=== PATIENT | female | born 1945 | race Caucasian/White ===

== ENCOUNTER 2019-12-26 05:45 | Inpatient (IN) | payer BC ==
[~2019-12-26] VITALS: Ht 172.7 cm; Wt 60.3 kg
[2019-12-26] VITALS (13 sets, daily range): BP systolic 108–143; BP diastolic 60–86
[~2019-12-26 05:45] MED LIST: NORCO 10-325 T1 EACH ORAL; TRAMADOL HCL50 MG ORAL
[2019-12-26] MEDS ORDERED: oxyCONTIN 10mg tab ORAL ONE (06:00)
[2019-12-26] MEDS ORDERED: celeBREX 200mg Cap **SURGERY PATIENTS ONLY ORAL ONE (06:00)
[2019-12-26] MEDS ORDERED: ceFAZolin 1gm IVPB IVPB ONE ×2 (06:00)
[2019-12-26] MEDS ORDERED: Lidocaine 1% MPF 10mg/ml 5ml ONE ×2 (06:33→06:41)
[2019-12-26] MEDS ORDERED: Ropivacaine 5mg/ml Vial 20ml INJ ONE (06:35)
[2019-12-26] MEDS ORDERED: fentaNYL 100 mcg/2 mL IV ONE (06:40)
--- NOTE | 2019-12-26 07:05 | Pre-Procedure Note/Attestation ---
Pre-Procedure Note/Attestation Complete Prior to Procedure Planned Procedure: right Procedure Narrative: right total knee arthroplasty Indications for Procedure Pre-Operative Diagnosis: right knee arthritis Attestation I attest that I discussed the nature of the procedure; its benefits; risks and complications; and alternatives (and the risks and benefits of such alternatives), prior to the procedure, with the patient (or the patient's legal territory account representative). I attest that, if there was a reasonable possibility of needing a blood transfusion, the patient (or the patient's legal territory account representative) was given the [facility] standardized written summary, pursuant to the Anjel Janie Blood Safety Act ([place] Health and Safety Code # 1645, as amended). I attest that I re-evaluated the patient just prior to the surgery and that there has been no change in the patient's H&P, except as documented below: NONE Rolly Casiano MD Dec 26, 2019 07:05
[2019-12-26] MEDS ORDERED: Bacitracin 50000 Units Vial ONE (07:23)
[2019-12-26] MEDS ORDERED: NeoSporin Gu Irrig 1ml Amp IRRIG ONE ×2 (07:23→07:42)
[2019-12-26] MEDS ORDERED: Tranexamic Acid 1,000 MG in NS 55 ML IVPB ONE (07:30)
--- NOTE | 2019-12-26 07:32 | Anethesia Preoperative Eval ---
Anesthesia Pre-op PMH/ROS General Date of Evaluation: Dec 26, 2019 Time of Evaluation: 07:26 Anesthesiologist: Leo ASA Score: ASA 2 Mallampati Score Class I : Soft palate, uvula, fauces, pillars visible Class II: Soft palate, uvula, fauces visible Class III: Soft palate, base of uvula visible Class IV: Only hard plate visible Mallampati Classification: Class II Surgeon: Oh Diagnosis: R knee djd Surgical Procedure: R knee arthroplasty Anesthesia History: none Family History: no anesthesia problems Allergies: Coded Allergies: No Known Allergies (Unverified , 12/26/19) Medications: see eMAR Patient NPO?: Yes Past Medical History Cardiovascular: Denies: HTN, CAD, [place], valve dz, arrhythmia, other Pulmonary: Denies: asthma, COPD, NACHO, other Gastrointestinal/Genitourinary: Reports: GERD - mild; Denies: CRI, ESRD, other Neurologic/Psychiatric: Denies: dementia, CVA, depression/anxiety, TIA, other Endocrine: Denies: DM, hypothyroidism, steroids, other HEENT: Denies: cataract (L), cataract (R), glaucoma, [place] (L), [place] (R), other Hematology/Immune: Denies: anemia, DVT, bleeding disorder, other Musculoskeletal/Integumentary: Reports: OA; Denies: RA, DJD, DDD, edema, other PMH Narrative: as above PSxH Narrative: R ACL repair, ovarian cystectomy, podiatry Anesthesia Pre-op Phys. Exam Physician Exam Last Vital Signs Date Time Temp Pulse Resp B/P (MAP) Pulse Ox O2 Delivery O2 Flow Rate FiO2 12/26/19 06:49 Room Air 12/26/19 06:28 97.1 74 18 133/76 (95) 98 Constitutional: NAD Neurologic: CN 2-12 intact Cardiovascular: RRR, no M/R/G Respiratory: CTA Gastrointestinal: S/NT/ND Airway Exam Mallampati Score: Class II MO: full Neck: stiff ROM: limited Teeth: missing Dentures: no upper, no lower Anesthesia Pre-op A/P Labs see chart Studies Pre-op Studies: EKG - NSR, CXR - WNL Risk Assessment & Plan Assessment: ASA 2 Plan: GA with LMA, saphenous nerve block for postop pain control Status Change Before Surgery: No Pre-Antibiotics Drug: ancef 1gr Given Within 1 Hr of Incision: Yes Time Given: 08:45 Greg Bailey MD Dec 26, 2019 07:31
[2019-12-26] MEDS ORDERED: NS Irrig 1000ml IRRIG ONE ×4 (08:22→10:40)
[2019-12-26] MEDS ORDERED: Ketorolac 30mg Inj IV PRN ×2 (08:30→12:45)
[2019-12-26] MEDS ORDERED: LR 1000ml 1,000 ML IVLG SCH (08:30)
[2019-12-26] MEDS ORDERED: Acetaminophen (Non formulary) 100 ML IV ONE (08:30)
[2019-12-26] MEDS ORDERED: Sterile Water Irrig 2000ml IRRIG ONE (09:16)
[2019-12-26] MEDS ORDERED: LR 1000ml ONE (09:16)
[2019-12-26] MEDS ORDERED: NS Irrig 1000ml ONE (09:16)
[2019-12-26] MEDS: Bacitracin 50000 Units Vial ONE ×2 (09:45→10:40)
[2019-12-26] MEDS ORDERED: Morphine Sulfate 10mg/ml Inj ONE (09:58)
[2019-12-26] MEDS ORDERED: Sodium Chloride 10ml vial INJ ONE ×2 (09:59→10:05)
[2019-12-26] MEDS ORDERED: ePHEDrine 50mg/ml Inj ONE (10:05)
[2019-12-26] MEDS ORDERED: HYDROmorphone 1mg/ml Carpuject SUBQ PRN (10:15)
[2019-12-26] MEDS ORDERED: Milk of Magnesia 30ml Ud ORAL PRN (10:15)
--- NOTE | 2019-12-26 11:51 | Brief Operative Note ---
Immediate Post Operative Note Operative Note Chief Complaint: rt knee pain Pre-op Diagnosis: right knee arthritis Procedure: rt total knee arthroplasty Post-op Diagnosis: same as pre-op Findings: consistent w/pre-op dx studies Surgeon: md shahram Coil Finisher: pascual martinez Anesthesiologist: md colten Anesthesia: general Specimen: yes Complications: none Condition: stable Fluids: ns Estimated Blood Loss: minimal Drains: none Implant(s) used?: Yes - Rolly Mora MD Dec 26, 2019 11:51
--- NOTE | 2019-12-26 12:07 | Immediate Post-Op Evaluation ---
Immediate Post-Op Evalulation Immediate Post-Op Evalulation Procedure: R TKA Date of Evaluation: Dec 26, 2019 Time of Evaluation: 12:06 IV Fluids: 1300 Blood Products: none Estimated Blood Loss: 150 Urinary Output: 450 Blood Pressure Systolic: 142 Blood Pressure Diastolic: 76 Pulse Rate: 82 Respiratory Rate: 20 O2 Sat by Pulse Oximetry: 99 Temperature (Fahrenheit): 97.8 Pain Score (1-10): 2 Nausea: No Vomiting: No Complications none Patient Status: reacts, patent, extubated, none Greg Bailey MD Dec 26, 2019 12:07
[2019-12-26] MEDS ORDERED: Hydromorphone 0.5mg/0.5ml inj ONE ×2 (12:13→12:26)
[2019-12-26] MEDS: Hydromorphone 0.5mg/0.5ml inj IVP PRN ×2 (12:16→12:28)
[2019-12-26] MEDS ORDERED: Hydromorphone 0.5mg/0.5ml inj IVP PRN (12:30)
[2019-12-26] MEDS ORDERED: DiphenhydrAMINE 50mg/ml Inj IVP SCH ×2 (12:30→12:45)
--- NOTE | 2019-12-26 15:29 | Diagnostic Imaging Report ---
Indications: Postoperative Technique: Two views of the right knee Comparison: None Findings: Two postoperative views of the great knee demonstrate total knee arthroplasty, good anatomic alignment of the prosthesis. . There is postsurgical soft tissue air. Impression: Postoperative right knee, no unusual features.
[2019-12-26] MEDS: ceFAZolin sod 1 GM in D5W 55 ML IV SCH (15:32)
[2019-12-26] MEDS: D5 1/2NS w/KCl 20mEq 1,000 ML IV SCH (15:32)
[2019-12-26] MEDS: Docusate 100mg cap ORAL SCH (17:48)
--- NOTE | 2019-12-26 18:30 | Operative Note - Dictated ---
DATE OF OPERATION: 12/26/2019 PREOPERATIVE DIAGNOSES: 1. Right knee end-stage arthritis. 2. Right knee retained [employer] staple. POSTOPERATIVE DIAGNOSES: 1. Right knee end-stage arthritis. 2. Right knee retained [employer] staple. PROCEDURE: 1. Right total knee arthroplasty using the [place] Triathlon System, size 5 femur, size 6 tibial baseplate, 33 mm ultra cross-linked patellar component, and 9 mm ultra cross-linked polyethylene tibial insert. 2. Removal of [employer]ald [employer]hew staple hardware under anteromedial crest of the tibia that was impeding the placement of the implant. SURGEON: Rolly Casiano MD SHEET METAL CONTRACTOR: Connie Atkinson PA-C Senior Account Director was present during the actual operative portion of the case and was important and essential part of the operation. During the operation, the multimedia assistant held and operated the arthroscopic camera for visualization, assisted by manipulating the arm to help with visualization, and helped with essential parts of the repair process as necessary such as operating surgical instruments under surgeon supervision, suture management, and wound closures. ANESTHESIOLOGIST: Greg Bailey MD ANESTHESIA: Short-acting spinal combined with adductor block. ESTIMATED BLOOD LOSS: Less than 100 mL. TOURNIQUET TIME: 75 minutes. COMPLICATIONS: None. BRIEF HISTORY: The patient is a very pleasant 74-year-old female, who has had ongoing right knee pain with severe arthritis of all three compartments. After full discussion of risks and benefits of the surgery and after she failed nonoperative treatment, she opted for surgical treatment as described above. Risk of infection, bleeding, neurovascular complication, possibility of continued pain, possibility of stiffness, possibility of fracture, possibility of DVT, PE, stiffness, even postop pain, loss of motion, and need for revision surgery as well as possible resection arthroplasty in case of infection was discussed with the patient. The patient understood and agreed. OPERATIVE PROCEDURE: The patient was brought to the operating room table and was placed supine. All pressure points were well padded. Anesthesia was induced by the anesthesiologist and block was performed. Preoperative antibiotics were given and tranexamic acid was given preoperatively. Time-out was performed and right leg was prepped and draped in a sterile fashion and exsanguinated. Tourniquet was inflated to 275 mmHg. A standard anterior approach to the knee was undertaken. Medial parapatellar arthrotomy was performed. Release of the fibers of the MCL was performed. The staple on the tibial side appeared to be impeding the placement of the implant. Therefore, the tibial staple was identified on the medial face and using a combination of osteotome and rongeurs, the staple was removed without any complications. The hardware was removed in this fashion. At this point, care was then directed to total knee replacement. The patella was everted. The knee was flexed. The ACL and PCL were resected. Intramedullary access was obtained into the femur. The intramedullary guide passed through the femoral staple and therefore, the femoral staple did not need to be taken out. Once this was completed, the distal femoral cut was performed in 5 degrees of valgus. Sizing was performed and size 5 appeared to be the right size. Anterior, posterior, and chamfer cuts were performed. There was very slight notching of the anterior femur, although this did not expose the bone to fracture. There was no loss of structural integrity of the bone. At this point, the trial 5 femur was applied. There was excellent fit. The peg holes were drilled and care was given to the tibia. Extramedullary tibial guide was placed in. Anterior crest of the tibia was marked as the guide for anatomical axis. The extramedullary guide was applied and 2 mm was taken off the most-involved side, which was the lateral side. Medial, lateral, and posterior retractors were placed in and the tibial cut was performed without any complication. Flexion and extension gap was checked and appeared to be excellent. There were some posterior osteophytes off the condyle, which were removed. The menisci were all removed. At this point, the trial femoral component, tibial component, 9 mm poly were placed and there was excellent range of motion, full extension, full flexion, and excellent stability at 0, 30 degrees, 45 degrees, and 90 degrees. At this point, the tibial plate, which was a size 6 tibial plate was placed in slight external rotation and it was drilled and punched without complications. At this point, care was given to the patella component. The patella was everted. It measured 25 mm. A freehand patellar cut was performed and the final patella thickness was 14 mm. At this point, size 32 mm patella appeared to be the right size and the peg holes were drilled. The patella trial was applied and femoral and tibial trials were applied with 9 mm poly insert. The knee was placed through range of motion. There was excellent patellofemoral tracking and excellent range of motion and stability as described previously. At this point, all trial components were removed. The knee was thoroughly irrigated using Simpulse irrigation. The cement was mixed and tibial component, femoral component, and patella components were all cemented under compression and all excess cement was removed. At this point, trialing was performed with 9 mm poly and appeared to be the right size. The knee was irrigated thoroughly and dried, and the actual 9 mm poly was then locked in without any complication. Intraoperative x-rays were obtained on AP and lateral, and the femoral staple was intact and was away from the field of the femur. The components were in excellent position. Again, slight notching of anterior femur could be seen on the x-ray, which was felt to be clinically consequential. All wounds were thoroughly irrigated using copious amount of fluid. The tourniquet was deflated and there was minimal bleeding, which was coagulated. The extensor mechanism was closed using #1 Vicryl suture. Subcutaneous tissue was closed using 2-0 Vicryl suture. Skin was closed using 3-0 Monocryl suture. Dermabond was applied and sterile dressing was applied. The patient tolerated the procedure well without any complication and was taken recovery room in stable condition. All lap counts and instrument counts were correct. Rolly Casiano M.D. DR: PATRICIA JOB#: [id number] CC:
[2019-12-26] MEDS ORDERED: oxyCONTIN 10mg tab ORAL SCH (21:00)
[2019-12-26] MEDS: HYDROcodone/Acetamin 7.5/325 tab ORAL PRN (22:28)
[2019-12-27] VITALS: BP 107/62
--- NOTE | 2019-12-27 00:45 | Consultation ---
DATE OF CONSULTATION: 12/26/2019 INTERNAL MEDICINE CONSULTATION CONSULTING PHYSICIAN: Jaskaran Kumar MD HISTORY OF PRESENT ILLNESS: Patient is a pleasant 74-year-old female who was admitted and underwent right knee arthroplasty by Dr. Casiano today for arthritis. Patient is seen postoperatively. She denies any chest pain or shortness of breath. Denies any abdominal pain. No urinary symptoms. No headaches. No sore throat. No fevers or chills. PAST MEDICAL HISTORY: Includes a history of gastroesophageal reflux, history of previous right ACL repair, history of ovarian cystectomy, history of podiatry, history of ovarian cystectomy, history of right knee degenerative joint disease. Denies any history of CAD, hypertension, or [place]. ALLERGIES: None known. MEDICATIONS: See her reconciled medication list. SOCIAL HISTORY: She does not smoke, does not drink any alcohol or use any drugs. PHYSICAL EXAMINATION: GENERAL: She is well developed, well nourished, currently in no apparent distress. VITAL SIGNS: Blood pressure 135/67, respirations of 17, pulse 84, temperature 98.9. HEENT: Head is normocephalic, atraumatic. Pupils are equally reactive to light. Extraocular muscles are intact. Eyes are anicteric. NECK: Supple. No JVP. No bruits. LUNGS: Clear. HEART: Regular rate and rhythm. ABDOMEN: Soft. Positive bowel sounds. Nondistended, nontender. EXTREMITIES: No clubbing, cyanosis, or edema. Right knee is wrapped. NEUROVASCULAR: Intact. PSYCHIATRIC: Normal mood and affect. NEUROLOGIC: Nonfocal. ASSESSMENT AND PLAN: Patient is a 74-year-old female, underwent right knee arthroplasty today. Postoperatively, she appears to be doing fine. She will need postop care, pain medications. She needs a bowel regimen. Patient should be on DVT and ulcer prophylaxis. Thank you for allowing me to participate in the care of patient. Jaskaran Kumar M.D. DR: DEANDRE JOB#: [id number] CC:
[2019-12-27] MEDS: ceFAZolin sod 1 GM in D5W 55 ML IV SCH (01:26)
[2019-12-27] MEDS: D5 1/2NS w/KCl 20mEq 1,000 ML IV SCH ×2 (04:00→17:40)
[2019-12-27] MEDS: HYDROcodone/Acetamin 7.5/325 tab ORAL PRN ×2 (04:04→12:38)
[2019-12-27 06:02] LABS: BASOPHILS % (AUTO) 0.8 % (0.0-2.0); EOSINOPHILS % (AUTO) 3.7 % (0.0-3.0); HEMATOCRIT 29.2 % (37.0-47.0); HEMOGLOBIN 9.1 G/DL (12.0-16.0); LYMPHOCYTES % (AUTO) 13.9 % (20.0-45.0); MEAN CORPUSCULAR VOLUME 96 FL (80-99); NEUTROPHILS % (AUTO) 69.6 % (45.0-75.0); PLATELET COUNT 210 K/UL (150-450); RED BLOOD COUNT 3.04 M/UL (4.20-5.40); WHITE BLOOD COUNT 6.7 K/UL (4.8-10.8)
--- NOTE | 2019-12-27 07:55 | 48 Hour Post Anesthesia Eval ---
Post Anesthesia Evaluation Procedure: R TKA Date of Evaluation: Dec 27, 2019 Time of Evaluation: 07:53 Blood Pressure Systolic: 108 0: 76 Pulse Rate: 76 Respiratory Rate: 22 Temperature (Fahrenheit): 97.6 O2 Sat by Pulse Oximetry: 98 Airway: patent Nausea: No Vomiting: No Pain Intensity: 3 Hydration Status: adequate Cardiopulmonary Status: stable Mental Status/LOC: patient returned to baseline Follow-up Care/Observations: n/a Post-Anesthesia Complications: none Follow-up care needed: N/A Greg Bailey MD Dec 27, 2019 07:55
[2019-12-27 08:00] VITALS: BP 103/66
--- NOTE | 2019-12-27 08:08 | Orthopedic Progress Note ---
Orthopedic - Progress Note Subjective Symptoms: c/o post-op knee pain, other - quite somnolent yesterday and therefore held night dose oxy. c/o pain overnight. would like to be on PO meds and take less diluadid. Objective Laboratory Tests Test 12/27/19 05:29 White Blood Count 6.7 K/UL (4.8-10.8) Red Blood Count 3.04 M/UL (4.20-5.40) L Hemoglobin 9.1 G/DL (12.0-16.0) L Hematocrit 29.2 % (37.0-47.0) L Mean Corpuscular Volume 96 FL (80-99) Mean Corpuscular Hemoglobin 29.9 PG (27.0-31.0) Mean Corpuscular Hemoglobin Concent 31.1 G/DL (32.0-36.0) L Red Cell Distribution Width 14.0 % (11.6-14.8) Platelet Count 210 K/UL (150-450) Mean Platelet Volume 6.0 FL (6.5-10.1) L Neutrophils (%) (Auto) 69.6 % (45.0-75.0) Lymphocytes (%) (Auto) 13.9 % (20.0-45.0) L Monocytes (%) (Auto) 12.0 % (1.0-10.0) H Eosinophils (%) (Auto) 3.7 % (0.0-3.0) H Basophils (%) (Auto) 0.8 % (0.0-2.0) Last 24 Hour Vital Signs Date Time Temp Pulse Resp B/P (MAP) Pulse Ox O2 Delivery O2 Flow Rate FiO2 12/27/19 07:55 76 22 98 12/27/19 00:00 98.1 91 18 107/62 (77) 97 12/26/19 21:00 Nasal Cannula 1.0 12/26/19 20:00 98.2 86 17 108/60 (76) 97 12/26/19 15:30 97.9 87 18 125/67 (86) 100 12/26/19 14:25 98.8 86 18 131/68 (89) 100 12/26/19 13:55 98.8 65 18 134/68 (90) 100 12/26/19 13:25 98.9 84 17 135/67 (89) 100 12/26/19 13:15 98.0 83 20 143/80 99 Nasal Cannula 3 12/26/19 13:01 98.0 81 20 135/79 99 Nasal Cannula 3 12/26/19 12:56 99.0 12/26/19 12:55 99.0 12/26/19 12:47 87 20 132/76 99 Simple Mask 5 12/26/19 12:38 86 20 131/79 99 Simple Mask 5 12/26/19 12:30 91 20 131/75 99 Simple Mask 5 12/26/19 12:16 86 20 141/86 99 Simple Mask 5 12/26/19 12:07 82 20 99 12/26/19 11:59 99.1 86 20 141/86 99 Simple Mask 5 Intake and Output 12/26/19 12/27/19 19:00 07:00 Intake Total 1500 ml 720 ml Output Total 600 ml 1600 ml Balance 900 ml -880 ml Intake Oral 200 ml 720 ml IV Total 1300 ml Output Urine Total 450 ml 1600 ml Estimated Blood Loss 150 ml # Voids 6 Laboratory Tests Test 12/27/19 05:29 White Blood Count 6.7 K/UL (4.8-10.8) Red Blood Count 3.04 M/UL (4.20-5.40) L Hemoglobin 9.1 G/DL (12.0-16.0) L Hematocrit 29.2 % (37.0-47.0) L Mean Corpuscular Volume 96 FL (80-99) Mean Corpuscular Hemoglobin 29.9 PG (27.0-31.0) Mean Corpuscular Hemoglobin Concent 31.1 G/DL (32.0-36.0) L Red Cell Distribution Width 14.0 % (11.6-14.8) Platelet Count 210 K/UL (150-450) Mean Platelet Volume 6.0 FL (6.5-10.1) L Neutrophils (%) (Auto) 69.6 % (45.0-75.0) Lymphocytes (%) (Auto) 13.9 % (20.0-45.0) L Monocytes (%) (Auto) 12.0 % (1.0-10.0) H Eosinophils (%) (Auto) 3.7 % (0.0-3.0) H Basophils (%) (Auto) 0.8 % (0.0-2.0) Wound: clean, dry, intact Drains: none Neuro Status: normal Vascular Status: normal Additional Comments xray excellent Assessment Post-op Diagnosis POD 1 Procedure Performed Rt TKA Plan Plan: PT, pain management - will add oxy 10mg BID back on. , discharge plan - plan for home with services and DME possibly tomorrow Connie Atkinson Dec 27, 2019 08:08
[2019-12-27] MEDS: oxyCONTIN 10mg tab ORAL SCH ×2 (08:37→20:47)
[2019-12-27] MEDS: celeBREX 200mg Cap **SURGERY PATIENTS ONLY ORAL SCH (08:37)
[2019-12-27] MEDS: Docusate 100mg cap ORAL SCH ×3 (08:37→17:48)
--- NOTE | 2019-12-27 08:49 | General Progress Note ---
Subjective Allergies: Coded Allergies: No Known Allergies (Unverified , 12/26/19) Subjective feels ok no chest painor sob Objective Last 24 Hour Vital Signs Date Time Temp Pulse Resp B/P (MAP) Pulse Ox O2 Delivery O2 Flow Rate FiO2 12/27/19 08:00 98.9 96 18 103/66 (78) 97 12/27/19 07:55 76 22 98 12/27/19 00:00 98.1 91 18 107/62 (77) 97 12/26/19 21:00 Nasal Cannula 1.0 12/26/19 20:00 98.2 86 17 108/60 (76) 97 12/26/19 15:30 97.9 87 18 125/67 (86) 100 12/26/19 14:25 98.8 86 18 131/68 (89) 100 12/26/19 13:55 98.8 65 18 134/68 (90) 100 12/26/19 13:25 98.9 84 17 135/67 (89) 100 12/26/19 13:15 98.0 83 20 143/80 99 Nasal Cannula 3 12/26/19 13:01 98.0 81 20 135/79 99 Nasal Cannula 3 12/26/19 12:56 99.0 12/26/19 12:55 99.0 12/26/19 12:47 87 20 132/76 99 Simple Mask 5 12/26/19 12:38 86 20 131/79 99 Simple Mask 5 12/26/19 12:30 91 20 131/75 99 Simple Mask 5 12/26/19 12:16 86 20 141/86 99 Simple Mask 5 12/26/19 12:07 82 20 99 12/26/19 11:59 99.1 86 20 141/86 99 Simple Mask 5 Intake and Output 12/26/19 12/27/19 19:00 07:00 Intake Total 1500 ml 720 ml Output Total 600 ml 1600 ml Balance 900 ml -880 ml Intake Oral 200 ml 720 ml IV Total 1300 ml Output Urine Total 450 ml 1600 ml Estimated Blood Loss 150 ml # Voids 6 Laboratory Tests 12/27/19 05:29: White Blood Count 6.7, Red Blood Count 3.04L, Hemoglobin 9.1L, Hematocrit 29.2L, Mean Corpuscular Volume 96, Mean Corpuscular Hemoglobin 29.9, Mean Corpuscular Hemoglobin Concent 31.1L, Red Cell Distribution Width 14.0, Platelet Count 210, Mean Platelet Volume 6.0L, Neutrophils (%) (Auto) 69.6, Lymphocytes (%) (Auto) 13.9L, Monocytes (%) (Auto) 12.0H, Eosinophils (%) (Auto) 3.7H, Basophils (%) (Auto) 0.8 Height (Feet): 5 Height (Inches): 8.00 Weight (Pounds): 133 General Appearance: WD/WN, no apparent distress Neck: supple Cardiovascular: normal rate Respiratory/Chest: lungs clear Abdomen: soft Edema: no edema noted Arm (L), no edema noted Arm (R), no edema noted Leg (L), no edema noted Leg (R), no edema noted Pedal (L), no edema noted Pedal (R), no edema noted Generalized Assessment/Plan Assessment/Plan: sp knee surgery osteoarthritis post op care pt eval pain control dvt and ulcer prophyloaxis Jaskaran Kumar MD Dec 27, 2019 08:49
[2019-12-27 10:10] LABS: BASOPHILS % (AUTO) 0.9 % (0.0-2.0); EOSINOPHILS % (AUTO) 3.2 % (0.0-3.0); HEMATOCRIT 30.6 % (37.0-47.0); HEMOGLOBIN 9.7 G/DL (12.0-16.0); LYMPHOCYTES % (AUTO) 11.6 % (20.0-45.0); MEAN CORPUSCULAR VOLUME 95 FL (80-99); MONOCYTES % (AUTO) 12.9 % (1.0-10.0); NEUTROPHILS % (AUTO) 71.5 % (45.0-75.0); PLATELET COUNT 227 K/UL (150-450); RED CELL DISTRIBUTION WIDTH 13.6 % (11.6-14.8); WHITE BLOOD COUNT 8.8 K/UL (4.8-10.8)
[2019-12-27 10:40] LABS: ALANINE AMINOTRANSFERASE 19 U/L (12-78); ALBUMIN 3.2 G/DL (3.4-5.0); ALBUMIN/GLOBULIN RATIO 1.1 (1.0-2.7); ALKALINE PHOSPHATASE 67 U/L (46-116); ANION GAP 9 mmol/L (5-15); ASPARTATE AMINO TRANSFERASE 22 U/L (15-37); BILIRUBIN,TOTAL 1.5 MG/DL (0.2-1.0); BLOOD UREA NITROGEN 11 mg/dL (7-18); CALCIUM 8.1 MG/DL (8.5-10.1); CARBON DIOXIDE 24 MMOL/L (21-32); CHLORIDE 104 MMOL/L (98-107); CREATININE 0.9 MG/DL (0.55-1.30); POTASSIUM 4.6 MMOL/L (3.5-5.1); SODIUM 137 MMOL/L (136-145)
[2019-12-27 10:41] LABS: BILIRUBIN,DIRECT 0.3 MG/DL (0.0-0.3)
[2019-12-27 12:00] VITALS: BP 103/82
[2019-12-27] MEDS ORDERED: Tubing IV Secondary IV ONE (15:27)
[2019-12-27 16:00] VITALS: BP 100/60
[2019-12-27 20:00] VITALS: BP 115/61
[2019-12-28] MEDS: D5 1/2NS w/KCl 20mEq 1,000 ML IV SCH (00:39)
[2019-12-28 04:00] VITALS: BP 110/64
[2019-12-28] MEDS: HYDROcodone/Acetamin 7.5/325 tab ORAL PRN ×3 (05:32→16:02)
[2019-12-28 07:20] LABS: BASOPHILS % (AUTO) 0.5 % (0.0-2.0); EOSINOPHILS % (AUTO) 4.1 % (0.0-3.0); HEMOGLOBIN 8.2 G/DL (12.0-16.0); MEAN CORPUSCULAR VOLUME 96 FL (80-99); MONOCYTES % (AUTO) 10.5 % (1.0-10.0); NEUTROPHILS % (AUTO) 68.9 % (45.0-75.0); PLATELET COUNT 186 K/UL (150-450); RED BLOOD COUNT 2.72 M/UL (4.20-5.40); RED CELL DISTRIBUTION WIDTH 13.9 % (11.6-14.8); WHITE BLOOD COUNT 6.5 K/UL (4.8-10.8)
--- NOTE | 2019-12-28 07:23 | Orthopedic Progress Note ---
Orthopedic - Progress Note Subjective Additional Comments Doing ok with PT. Ambulating Objective Last 24 Hour Vital Signs Date Time Temp Pulse Resp B/P (MAP) Pulse Ox O2 Delivery O2 Flow Rate FiO2 12/28/19 04:00 98.1 98 18 110/64 (79) 97 12/27/19 21:00 Room Air 12/27/19 20:00 98.0 83 17 115/61 (79) 94 12/27/19 16:00 98.4 83 18 100/60 (73) 96 12/27/19 12:00 97.8 86 18 103/82 (89) 94 12/27/19 09:00 Room Air 12/27/19 08:00 98.9 96 18 103/66 (78) 97 12/27/19 07:55 76 22 98 Intake and Output 12/27/19 12/28/19 19:00 07:00 Intake Total 1825 ml 480 ml Output Total 2075 ml 1400 ml Balance -250 ml -920 ml Intake Oral 1600 ml 480 ml IV Total 225 ml Output Urine Total 2075 ml 1400 ml # Voids 1 3 Laboratory Tests Test 12/27/19 09:25 12/28/19 05:00 White Blood Count 8.8 K/UL (4.8-10.8) Pending Red Blood Count 3.20 M/UL (4.20-5.40) L Pending Hemoglobin 9.7 G/DL (12.0-16.0) L Pending Hematocrit 30.6 % (37.0-47.0) L Pending Mean Corpuscular Volume 95 FL (80-99) Pending Mean Corpuscular Hemoglobin 30.3 PG (27.0-31.0) Pending Mean Corpuscular Hemoglobin Concent 31.8 G/DL (32.0-36.0) L Pending Red Cell Distribution Width 13.6 % (11.6-14.8) Pending Platelet Count 227 K/UL (150-450) Pending Mean Platelet Volume 5.6 FL (6.5-10.1) L Pending Neutrophils (%) (Auto) 71.5 % (45.0-75.0) Pending Lymphocytes (%) (Auto) 11.6 % (20.0-45.0) L Pending Monocytes (%) (Auto) 12.9 % (1.0-10.0) H Pending Eosinophils (%) (Auto) 3.2 % (0.0-3.0) H Pending Basophils (%) (Auto) 0.9 % (0.0-2.0) Pending Sodium Level 137 MMOL/L (136-145) Potassium Level 4.6 MMOL/L (3.5-5.1) Chloride Level 104 MMOL/L (98-107) Carbon Dioxide Level 24 MMOL/L (21-32) Anion Gap 9 mmol/L (5-15) Blood Urea Nitrogen 11 mg/dL (7-18) Creatinine 0.9 MG/DL (0.55-1.30) Estimat Glomerular Filtration Rate > 60 mL/min (>60) Glucose Level 132 MG/DL (74-106) H Calcium Level 8.1 MG/DL (8.5-10.1) L Total Bilirubin 1.5 MG/DL (0.2-1.0) H Direct Bilirubin 0.3 MG/DL (0.0-0.3) Aspartate Amino Transf (AST/SGOT) 22 U/L (15-37) Alanine Aminotransferase (ALT/SGPT) 19 U/L (12-78) Alkaline Phosphatase 67 U/L (46-116) Total Protein 6.1 G/DL (6.4-8.2) L Albumin 3.2 G/DL (3.4-5.0) L Globulin 2.9 g/dL Albumin/Globulin Ratio 1.1 (1.0-2.7) Wound: clean, dry Drains: none Neuro Status: normal Assessment Procedure Performed rt total knee arthroplasty Plan Plan: PT, discharge to home Additional Comments Home PT, Follow up in a week Rolly Casiano MD Dec 28, 2019 07:23
[2019-12-28 08:00] VITALS: BP 99/65
[2019-12-28] MEDS: Docusate 100mg cap ORAL SCH ×2 (09:17→12:09)
[2019-12-28] MEDS: celeBREX 200mg Cap **SURGERY PATIENTS ONLY ORAL SCH (09:19)
[2019-12-28] MEDS: oxyCONTIN 10mg tab ORAL SCH (09:20)
--- NOTE | 2019-12-28 09:54 | Discharge Summary ---
Discharge Summary Hospital Course Date of Admission Dec 26, 2019 at 14:02 Date of Discharge 12/28/2019 Admitting Diagnosis right knee arthritis Reason for Hospitalization: s/p right total knee arthroplasty HPI Agueda Padron is a 74 year old female who was admitted on Dec 26, 2019 at 14:02 for Primary Oa Of Right Knee Consultations MD José Procedures right total knee arthroplasty Hospital Course benign Discharge Condition Upon Discharge: improving, stable Discharge Vital Signs Last Vital Signs Date Time Temp Pulse Resp B/P (MAP) Pulse Ox O2 Delivery O2 Flow Rate FiO2 12/28/19 04:00 98.1 98 18 110/64 (79) 97 12/27/19 21:00 Room Air 12/26/19 21:00 1.0 Discharge Disposition Patient was discharged to home with home health/DME Connie Atkinson Dec 28, 2019 09:54
[2019-12-28 12:00] VITALS: BP 95/55
[2019-12-28 16:00] VITALS: BP 105/60
--- NOTE | 2019-12-28 19:45 | General Progress Note ---
Subjective Allergies: Coded Allergies: No Known Allergies (Unverified , 12/26/19) Subjective feels ok no chest painor sob passing gas Objective Last 24 Hour Vital Signs Date Time Temp Pulse Resp B/P (MAP) Pulse Ox O2 Delivery O2 Flow Rate FiO2 12/28/19 16:00 98.0 90 18 105/60 (75) 98 12/28/19 12:00 97.9 84 18 95/55 (68) 97 12/28/19 09:00 Room Air 12/28/19 08:00 98.3 94 18 99/65 (76) 97 12/28/19 04:00 98.1 98 18 110/64 (79) 97 12/27/19 21:00 Room Air 12/27/19 20:00 98.0 83 17 115/61 (79) 94 Intake and Output 12/27/19 12/28/19 19:00 07:00 Intake Total 1825 ml 480 ml Output Total 2075 ml 1400 ml Balance -250 ml -920 ml Intake Oral 1600 ml 480 ml IV Total 225 ml Output Urine Total 2075 ml 1400 ml # Voids 1 3 Laboratory Tests 12/28/19 05:00: White Blood Count 6.5, Red Blood Count 2.72L, Hemoglobin 8.2L, Hematocrit 26.0L, Mean Corpuscular Volume 96, Mean Corpuscular Hemoglobin 30.2, Mean Corpuscular Hemoglobin Concent 31.5L, Red Cell Distribution Width 13.9, Platelet Count 186, Mean Platelet Volume 5.9L, Neutrophils (%) (Auto) 68.9, Lymphocytes (%) (Auto) 16.0L, Monocytes (%) (Auto) 10.5H, Eosinophils (%) (Auto) 4.1H, Basophils (%) (Auto) 0.5 Height (Feet): 5 Height (Inches): 8.00 Weight (Pounds): 133 General Appearance: WD/WN Neck: supple Cardiovascular: normal rate Respiratory/Chest: lungs clear Abdomen: soft Assessment/Plan Assessment/Plan: sp knee surgery osteoarthritis post op care pt eval ambulte pain control dvt and ulcer prophyloaxis dc plans per Jaskaran Mendieta MD Dec 28, 2019 19:45
== END 2019-12-28 17:00 | disposition home health service (06) | DRG 470 ==
LOC: SUR 05:45 → SDSOVERFLO 06:04 → UNDOADMIN 06:04 → EDSTATUS 07:30 → 3E 14:02
PROC: 0SRC0J9 Replacement of Right Knee Joint with Synthetic Substitute, Cemented, Open Approach (ICD-10-PCS; principal; 2019-12-26 07:30)
DX: M17.11 Unilateral primary osteoarthritis, right knee (principal); K21.9 Gastro-esophageal reflux disease without esophagitis; F90.9 Attention-deficit hyperactivity disorder, unspecified type; G89.29 Other chronic pain
CPT/HCPCS: 36415; 80053; 82248; 85025; 86850; 86900; 86901; 87081; 94003; 94150; J2405; J2795; U0002